=== PATIENT | male | born 1980 | race Caucasian/White ===

== ENCOUNTER 2016-10-04 14:20 | Emergency (ER) | payer OTHER ==
[2016-10-04] MEDS ORDERED: ceFAZolin 2 GM/50 ML 50 ML IV ONE ×2 (16:29→16:42)
[2016-10-04] MEDS ORDERED: oxyCODONE 5 MG TABLET PO STA (18:11)
[2016-10-04] MEDS ORDERED: oxyCODONE 5 MG TABLET ONE (18:21)
== END 2016-10-04 18:36 | disposition home or self-care (01) ==
DX: L03.115 Cellulitis of right lower limb (principal)
CPT/HCPCS: 36415; 73610; 80048; 83605; 85025; 87040; 93971; 96374; 99283; 99284; A9270; J0690

== ENCOUNTER 2019-03-13 11:10 | Outpatient (CLI) | payer OTHER ==
[2019-03-13 12:12] VITALS: BP 110/70
--- NOTE | 2019-03-13 12:13 | CONSULTATION NOTE ---
Information from patient questionnaire entered by Yelitza Lou. I have reviewed and concur with the information entered by Yelitza Lou. This document represents the service I personally performed and the decisions made by me, Leticia Freire MD, [facility]. - History of Present Illness Chief Complaint: Unrefreshed sleep, Excessive daytime sleepiness, Frequent awakenings at night The patient tells me that he normally goes to bed around 10:00 pm, and it takes him approximately 10-15 minutes to fall asleep. He does not snore. He has not been observed to stop breathing in his sleep. He sleeps alone. He can recall waking up on the average of 2-4 times during the night. Most of the time he wakes up because of choking and 3-5 times a week at 3am. There is a lot of tossing and turning in his sleep. Generally he can recall having dreams. He usually wakes up at 6:00 am and does not feel refreshed. He usually does not have a morning headache. During the day he complains of feeling sleepy and fatigued. The [place] Sleepiness Scale score is 11. He has never fallen asleep while driving nor has any accident due to sleepiness. He usually does not take naps during the day. If he naps, upon falling asleep during the day he denies having vivid dreams. There is no somniloquy (sleep talking) or somnambulism (sleep walking). He has never experienced sleep paralysis, cataplexy, or symptoms of restless leg syndrome. He reports having impaired concentration during the day. 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 Patient is and lives in [place]. Smoked in the past 12 months: Yes Cigarettes per day (20/pack): 10 Years of smokin Quit Date: 12 yrs ago Smoking Pack Years: 3.0 Alcohol use: Yes Amount and frequency: 6 drinks a week Caffeine use: No - Family History Family history of sleep disordered breathing: Yes Family Hx Sleep Apnea: Mother: Snoring, Sibling: Snoring - Review of Systems Respiratory: reports: chronic cough Neurological: reports: headaches Psychiatric: reports: Attention Deficit Hyperactivity, anxiety, depression, mood disorder, claustrophobia Ear/Nose/Throat: reports: nose bleeds, wisdom teeth removed Musculoskeletal: reports: joint pain, back pain, joint swelling, muscle pain or cramping Immunologic: reports: sneezing - Physical Examination Vital signs obtained and documented by: Dr. Freire Blood Pressure: 110/70 Cuff size: regular Heart Rate: 78 O2 Saturation: 98 Height: 6 ft 2 in Weight (kg): 88.451 kg Body Mass Index: 25.0 BMI Classification: Overweight Neck circumference: 15 Mood/affect: normal HEENT: No craniofacial malformation Nostrils: patent to airflow Turbinates: normal Septum: midline Mouth and throat: narrow oropharynx Soft palate: normal Hard palate: normal Uvula: normal Tongue: normal in size Tonsils: small Chin and jaw: normal size and position Neck: normal w/o lymphadenopathy or thyromegaly Heart: regular rate and rhythm Lungs: clear bilaterally Abdomen: soft, non-tender Extremities: no edema or clubbing Neurologic: intact, no focal deficits - Impression 1. Suspected Obstructive Sleep Apnea-Hypopnea Syndrome, as suggested by a history of gasping or choking in sleep, frequent awakening during the night, unrefreshed sleep, and excessive daytime sleepiness. Narrow oropharynx is a common predisposing factor for obstructive sleep apnea-hypopnea syndrome. I recommend proceeding to polysomnography to confirm the diagnosis and to assess severity. I informed the patient of what the sleep studies involve and after some discussion, obtained agreement to proceed. - Plan Schedule polysomnography and return in 1-2 weeks after the study to discuss result and initiate therapy. Avoid long distance driving or driving when feeling sleepy. Avoid alcohol, sedative and muscle relaxant around bedtime. Review instructions provided by trained office staff on how to prepare for the sleep study. Return for follow-up after sleep study completed. I spent 100% of this 15 minute visit face to face with the patient with greater than 50% of this was spent time counseling the patient and coordination of care.
== END 2019-03-13 11:11 | disposition home or self-care (01) ==
LOC: SC 11:10
PROVIDERS: ATTEND Internal Medicine Pulmonary Disease
DX: G47.8 Other sleep disorders (principal); G47.10 Hypersomnia, unspecified
CPT/HCPCS: 99203; 99212

== ENCOUNTER 2019-03-23 19:32 | Outpatient (CLI) | payer OTHER | END 2019-03-23 19:33 | disposition home or self-care (01) | LOC: SC 19:32 | PROVIDERS: ATTEND Internal Medicine Pulmonary Disease | DX: R06.83 Snoring (principal) | CPT/HCPCS: 95810 ==

== ENCOUNTER 2019-04-24 14:34 | Outpatient (CLI) | payer OTHER ==
[2019-04-24 15:48] VITALS: BP 134/70
--- NOTE | 2019-04-24 15:48 | SLEEP CARE CONSULTATION ---
Information from patient questionnaire entered by Yelitza Lou. I have reviewed and concur with the information entered by Yelitza Lou. This document represents the service I personally performed and the decisions made by me, Mercy Pierce RN, MSN, PSYCHOLOGICAL AIDE. History of Present Illness Initial [place] Sleepiness Scale score: 11 Current [place] Sleepiness Scale score: 12 Additional HPI information: CHRISTIAN ALVA returns for follow up of the recently performed polysomnography and the patient was informed of the polysomnography findings. I explained the pathophysiology behind obstructive sleep apnea. Patient does not have sleep apnea and was advised how weight gain could increase the risk of developing sleep apnea in the future. Patient has light snoring. Snoring can be reduced by weight loss but patient at normal weight. Snoring can also be treated with an oral appliance from a dentist. Advised to check insurance coverage. In addition, an ENT evaluation can be do to see if other treatment is indicated. Patient counseled not drink alcohol less than 4 hours before bedtime as it can increase snoring and apnea. Patient was cautioned about risks of drowsy driving until sleepiness symptoms resolve. Patient denies drowsy driving. [facility] patient education on snoring and sleep apnea given and reviewed. Sleep Study - Polysomnography Polysomnography findings: The quality of the study is good. 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 The sleep architecture was normal. Respiratory monitoring showed no evidence of sleep disordered breathing (AHI = 0.5) or hypoxia (juvenal oxygen saturation of 94%). The patient only slept supine during this study (supine AHI = 0.5; non-supine = 0.00). Snore was light in intensity. There was no significant periodic leg movement of sleep. Cardiac rhythm was normal sinus rhythm without significant arrhythmia. No abnormal behavior (parasomnia) observed during the night. Allergies and Home Medications Home medication list reviewed: Yes Allergy and home medication list: Adderral 20mg ER am Adderral 5 mg 11am Review of Systems Review of systems same as previous: Yes Physical Exam Blood Pressure: 134/70 Cuff size: long Heart Rate: 96 O2 Saturation: 98 Height: 6 ft 2 in Weight (kg): 194 lb Body Mass Index: 24.9 BMI Classification: Healthy weight Impression and Plan 1. Snoring but no significant sleep disordered breathing. Patient advised that often weight loss will reduce snoring as well as apnea risk but he is at normal weight. An oral appliance can also be used for snoring. This would require a dental consultation. Patient cautioned not to use other online appliances as can cause bite issues. If considered, patient is advised to check if insurance will cover and a list of accredited dentists can be given. An ENT consult can also be helpful to determine if any other treatment is an option. 2. Insomnia, waking up 2-3 times during the night. Sometimes to choking. Most of time to unknown reason, anxiety, cat etc. He is able to go back to sleep but feels he never gets back to a deep sleep. He feels he is tossing and turning all through the night. He also reports PTSD and sees a counselor. He wakes up and gets up at same time every day. However, it can take a while to get to sleep a couple times a week due to things on mind, such as unfinished projects. He leaves bedroom and engages house work to get the chores done needed around the house or exercise. He does not have a relaxing ritual before bedtime. Thus he was advised to the importance of a relaxing bedtime ritual to assist the body to wind down from an active day. He can incorporate his children into this routine such as everyone getting bathcare done and in pajamas to watch a funny show before bed or engage in game. Other times, reading a relaxing book can assist relaxation. If he wakes due to things on his mind or it is hard to get to sleep due to things on mind, he is to write out as a release and then engage in quiet relaxing activity such as ready until sleepy. He is to repeat as often as necessary to associate the bed with sleep. He is also encouraged to continue to work with his counselor on his anxiety / PTSD which can be a cause of insomnia and fatigue. 3. Fatigue, that could be related to insomnia or other medical condition. Patient advised to follow up with PCP for further evaluation and agreed with plan. * * Follow up with PCP for further anxiety and fatigue. * Implement methods discussed to reduce insomnia. * Avoid alcohol consumption near bedtime * The patient is cautioned about driving until sleepiness is completely resolved. * Return as needed. I spent 100% of this 40 minute visit face to face with the patient with greater than 50% of this was spent time counseling the patient and coordination of care.
== END 2019-04-24 14:35 | disposition home or self-care (01) ==
LOC: SC 14:34
PROVIDERS: ATTEND Nurse Practitioner Family
DX: R06.83 Snoring (principal); G47.00 Insomnia, unspecified; R53.83 Other fatigue
CPT/HCPCS: 99212; 99215